=== PATIENT | male | born 1970 | race Caucasian/White ===

== ENCOUNTER 2017-06-22 00:43 | Emergency (ER) | payer SELFPAY ==
[~2017-06-22] VITALS: Ht 175.3 cm; Wt 104.3 kg
--- NOTE | 2017-06-22 00:45 | NUR ---
Dr. York at bedside for [facility]SE.
--- NOTE | 2017-06-22 01:00 | NUR ---
Pt out of ER for CT.
--- NOTE | 2017-06-22 01:17 | NUR ---
Patient back to ER from CT.
[2017-06-22 01:43] LABS: BASOPHILS % (AUTO) 0.6 % (0.0-2.0); EOSINOPHILS # (AUTO) 0.2 K/uL (0.0-0.7); EOSINOPHILS % (AUTO) 2.6 % (0.0-7.0); HEMATOCRIT 42.5 % (36.7-47.1); HEMOGLOBIN 14.6 g/dL (12.5-16.3); LYMPHOCYTES # (AUTO) 1.1 K/uL (20.0-40.0); LYMPHOCYTES % (AUTO) 14.1 % (20.5-51.5); MEAN CORPUSCULAR HEMOGLOBIN 29.3 uug (23.8-33.4); MEAN CORPUSCULAR HGB CONC 34 g/dL (32.5-36.3); MEAN CORPUSCULAR VOLUME 85.6 fL (73.0-96.2); MONOCYTES # (AUTO) 0.6 K/uL (2.0-10.0); NEUTROPHILS # (AUTO) 5.6 K/uL (1.8-8.9); NEUTROPHILS % (AUTO) 74.7 % (38.5-71.5); PLATELET COUNT (AUTO) 248 K/uL (152-348); RED BLOOD CELL COUNT(AUTO) 4.97 MIL/uL (4.06-5.63); WHITE BLOOD COUNT (AUTO) 7.5 K/uL (3.6-10.2)
[2017-06-22 01:48] LABS: CREATININE 1.1 mg/dL (0.6-1.3); POTASSIUM 3.6 mmol/L (3.5-5.1)
[2017-06-22 01:53] LABS: BILIRUBIN,DIRECT 0.1 mg/dL (0.0-0.2); BILIRUBIN,TOTAL 0.2 mg/dL (0.2-1.0); TOTAL PROTEIN, SERUM 7.4 g/dL (6.4-8.2)
[2017-06-22] MEDS ORDERED: CEPHALEXIN MONOHYDRATE 250 MG CAPSULE PO ONE (02:45)
[2017-06-22] MEDS ORDERED: NEOMY/BACITRA/POLYMYXIN B OINT UD PACKET TP ONE ×2 (02:45→02:46)
[2017-06-22] MEDS ORDERED: CEPHALEXIN MONOHYDRATE 250 MG CAPSULE ONE (02:55)
--- NOTE | 2017-06-22 03:19 | NUR ---
Dr. York on phone call with [facility] ER services account manager.
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
--- NOTE | 2017-06-22 03:30 | NUR ---
Patient accepted by [facility] by Dr. Rodriguez. [facility]#[id number], Number to report .
[2017-06-22] MEDS ORDERED: ONDANSETRON 4 MG/2 ML VIAL IV ONE (04:30)
[2017-06-22] MEDS ORDERED: MORPHINE SULFATE 2 MG/1 ML DISP.SYRIN IV ONE (04:30)
[2017-06-22] MEDS ORDERED: IV NORMAL SALINE 1000 ML BAG IV ONE (04:30)
[2017-06-22] MEDS ORDERED: ONDANSETRON 4 MG/2 ML VIAL ONE (04:50)
[2017-06-22] MEDS ORDERED: MORPHINE SULFATE 4 MG/1 ML DISP.SYRIN ONE (04:50)
--- NOTE | 2017-06-22 05:08 | NUR ---
Report given to Katy [facility].
--- NOTE | 2017-06-22 05:29 | NUR ---
[facility] arrived to ER to transport patient to [facility]. Report given to EMT. Documentation provided and CD of CT with patient.
--- NOTE | 2017-06-22 05:46 | NUR ---
Pt out of ER via gurney transported by [facility] to [facility].
== END 2017-06-22 05:45 | disposition short-term general hospital (02) ==
LOC: ER 00:47
DX: S02.2XXA Fracture of nasal bones, initial encounter for closed fracture (principal); S01.21XA Laceration without foreign body of nose, initial encounter; W10.9XXA Fall (on) (from) unspecified stairs and steps, initial encounter; Y93.89 Activity, other specified; Y92.89 Other specified places as the place of occurrence of the external cause; Y99.8 Other external cause status
CPT/HCPCS: 36415; 70450; 70486; 72125; 85025; 85730; 93005; A4217; A4663; G0480; J2270; J2405; J7030